=== PATIENT | female | born 2000 | race Caucasian/White ===

== ENCOUNTER 2023-05-17 03:08 | Emergency (ER) | payer SELFPAY ==
[~2023-05-17] VITALS: Ht 152.4 cm; Wt 46.0 kg
[2023-05-17 03:24] VITALS: O2SAT 100
[2023-05-17] MEDS ORDERED: NALO4SPR NS (06:10)
[2023-05-17 06:14] VITALS: BP 132/87; PULSE 88; RESP 12; TEMP 98.5
== END 2023-05-17 06:18 | disposition home or self-care (01) ==
LOC: ER 03:08
DX: T42.4X1A Poisoning by benzodiazepines, accidental (unintentional), initial encounter (principal); X58.XXXA Exposure to other specified factors, initial encounter; Z88.0 Allergy status to penicillin
CPT/HCPCS: 82962; 93005; 99291